=== PATIENT | female | born 1960 | race Caucasian/White ===

== ENCOUNTER → 2019-05-22 | Outpatient (CLI) | payer BC ==
[~2019-05-22] MED LIST: IOPAMIDOL 370 MG/ML 200 ML INFUS..BTL INJ ONE; SODIUM CHLORIDE 0.9% 50ML 50 ML ONE
--- NOTE | 2019-05-22 19:09 | Diagnostic Imaging Report ---
EXAM: CT Abdomen and Pelvis WITH contrast INDICATION: Abdominal pain ^[id number] ^1750 ^ABD PAIN COMPARISON: None. TECHNIQUE: Abdomen and pelvis were scanned utilizing a multidetector helical scanner from the lung base to the pubic symphysis after administration of IV contrast. Coronal and sagittal reformations were obtained. Routine protocol was performed. Scan was performed when during portal venous phase. Dose modulation, iterative reconstruction, and/or weight based adjustment of the mA/kV was utilized to reduce the radiation dose to as low as reasonably achievable. IV CONTRAST: 100 mL of Isovue-370 ORAL CONTRAST: Gastrografin RADIATION DOSE: Total DLP: 215 mGy*cm Estimated effective dose: (DLP x 0.015 x size factor) mSv COMPLICATIONS: None FINDINGS: LINES and TUBES: None. LOWER THORAX: Lung bases are clear with mild dependent lower lobe atelectasis. There is linear scarring or atelectasis at the left lung base as well. Heart size normal. HEPATOBILIARY: No focal hepatic lesions. No biliary ductal dilation. GALLBLADDER: No radio-opaque stones or sludge. No wall thickening. SPLEEN: No splenomegaly. PANCREAS: No focal masses or ductal dilatation. ADRENALS: No adrenal nodules KIDNEYS/URETERS: The renal lower poles are fused compatible with a horseshoe kidney. Kidneys enhance symmetrically. No hydronephrosis. No cystic or solid mass lesions. No stones. GI TRACT: No abnormal distention, wall thickening, or evidence of bowel obstruction. There is a moderately large volume of stool throughout the colon which is nonspecific but may be seen with constipation. Appendix is normal. PELVIC ORGANS/BLADDER: Urinary bladder appears unremarkable. The uterus is not visualized. No abnormal mass or fluid collection in the pelvis. LYMPH NODES: No dominant lymph node mass is seen in the abdomen, retroperitoneum or pelvis. Scattered subcentimeter nodes are likely reactive. VESSELS: No aneurysm or dissection of the abdominal aorta. Celiac, SMA, ISMAEL and renal arteries are patent. IVC and portal system appear unremarkable. PERITONEUM / RETROPERITONEUM: No pneumoperitoneum or ascites. BONES: No acute or suspicious bony lesions. SOFT TISSUES: Superficial surrounding soft tissue unremarkable. IMPRESSION: 1. No CT evidence for acute abdominal or pelvic pathology. 2. Moderately large volume of stool throughout the colon may be seen with constipation. In the proper clinical setting, this may also relate to diarrhea. 3. Horseshoe kidney. No hydronephrosis. Staff: [facility] Signed by: Dr. Klaus Mari M.D. on 05/22/2019 7:06 PM
== END ==
LOC: CT 16:53
PROVIDERS: ATTEND Emergency Medicine
DX: R10.9 Unspecified abdominal pain (principal)
CPT/HCPCS: 74177; Q9967